=== PATIENT | male | born 1980 | race Caucasian/White ===

== ENCOUNTER 2019-02-09 13:35 | Outpatient (REF) | payer BC, SELFPAY ==
[2019-02-09 21:11] LABS: ALT 324 U/L (12-78); AST 93 U/L (15-37); Albumin 3.8 g/dL (3.4-5.0); Alkaline Phosphatase 223 U/L (46-116); Bilirubin, Direct 1.07 mg/dL (0.00-0.20); Bilirubin, Total 1.7 mg/dL (0.2-1.0); Total Protein 7.4 g/dL (6.4-8.2)
== END 2019-02-09 13:55 ==
LOC: NCHCN 13:35
PROVIDERS: Visit Provider Family Medicine
DX: R94.5 Abnormal results of liver function studies (principal)
CPT/HCPCS: 80076

== ENCOUNTER 2019-03-17 14:35 | Outpatient (REF) | payer BC, SELFPAY ==
[2019-03-17 14:48] LABS: ALT 53 U/L (12-78); AST 26 U/L (15-37); Albumin 3.9 g/dL (3.4-5.0); Alkaline Phosphatase 80 U/L (46-116); Bilirubin, Direct 0.22 mg/dL (0.00-0.20); Bilirubin, Total 0.5 mg/dL (0.2-1.0); Total Protein 7.4 g/dL (6.4-8.2)
== END 2019-03-17 14:55 ==
LOC: NCHCN 14:35
PROVIDERS: PCP Internal Medicine; Visit Provider Internal Medicine
DX: B17.9 Acute viral hepatitis, unspecified (principal)
CPT/HCPCS: 80076

== ENCOUNTER 2020-04-23 22:33 | Outpatient (REF) | payer BC, SELFPAY ==
[2020-04-23 21:35] LABS: ALT 51 U/L (16-63); AST 29 U/L (15-37); Albumin 4.1 g/dL (3.4-5.0); Alkaline Phosphatase 100 U/L (46-116); Bilirubin, Direct 0.15 mg/dL (0.00-0.20); Bilirubin, Total 0.4 mg/dL (0.2-1.0); Total Protein 7.4 g/dL (6.4-8.2)
== END 2020-04-23 22:53 ==
LOC: NCHCN 22:33
PROVIDERS: PCP Internal Medicine; Visit Provider Internal Medicine
DX: R76.0 Raised antibody titer (principal)
CPT/HCPCS: 80076

== ENCOUNTER 2020-06-09 20:54 | Outpatient (REF) | payer BC, SELFPAY ==
[2020-06-12 01:43] LABS: SARS-CoV-2 RNA Undetected (Undetected)
[2020-06-12 06:36] LABS: SARS-CoV-2 Specimen Source Nasopharynx
== END 2020-06-09 21:14 ==
LOC: NCHCN 20:54
PROVIDERS: PCP Internal Medicine; Visit Provider Internal Medicine
DX: Z11.59 Encounter for screening for other viral diseases (principal)
CPT/HCPCS: U0003

== ENCOUNTER 2021-08-05 13:29 | Outpatient (CLI) | payer BC, SELFPAY ==
--- NOTE | 2021-08-05 13:00 | DI.RAD_ITS ---
Exam(s) XR HIP RT COMPLETE AP PELVIS EXAM: XR HIP RT COMPLETE AP PELVIS CLINICAL HISTORY: right hip pain. TECHNIQUE: 2D digital imaging was performed of the right hip. Two images were obtained. AP pelvis a nd lateral right hip views were obtained. COMPARISON: No exams were available for comparison FINDINGS: BONES: No acute fracture is present. No bony destructive lesion is seen. JOINTS: No dislocation present. There is mild narrowing of the superior joint space of the right hip. There is a small subchondral cyst in the right femoral head. SOFT TISSUE: Normal. IMPRESSION: Mild right hip joint space narrowing. Unremarkable radiographs of the pelvis. DATA REPOSITORY: RADIATION DOSE DELIVERED:
== END 2021-08-05 13:30 | disposition home or self-care (01) ==
LOC: DIORS 13:29
PROVIDERS: PCP Internal Medicine; Referring Provider Internal Medicine; Visit Provider Student in an Organized Health Care Education/Training Program
DX: M25.551 Pain in right hip (principal); M25.851 Other specified joint disorders, right hip
CPT/HCPCS: 73502

== ENCOUNTER 2021-10-27 02:46 | Outpatient (CLI) | payer BC, SELFPAY ==
[2021-10-27 23:22] LABS: COVID-19 RT-PCR UVMMC Result Negative (Negative)
== END 2021-10-27 02:47 | disposition home or self-care (01) ==
LOC: LBO 02:46
PROVIDERS: PCP Internal Medicine; Visit Provider Nurse Practitioner Family
DX: Z20.822 Contact with and (suspected) exposure to COVID-19 (principal)
CPT/HCPCS: U0003